=== PATIENT | female | born 1995 | race Caucasian/White ===

== ENCOUNTER 2017-02-20 15:00 | Inpatient (IN) ==
[2017-02-20] MEDS: LACTATED RINGERS 1,000 ML IV SCH (15:34)
[2017-02-20 16:23] LABS: Basophils # 0.1 10*3/uL (0.0-0.2); Basophils % 0.3 % (0.0-0.8); Eosinophils # 0.1 10*3/uL (0.0-0.87); Eosinophils % 0.5 % (0.00-10.9); Hematocrit 38.5 VOL% (35.7-47.0); Hemoglobin 12.8 GM/DL (12.0-16.0); Immature Granulocytes % 0.7 %; Lymphocytes # 3.3 10*3/uL (1.4-4.0); Lymphocytes % 21.5 % (21.3-54.2); Mean Corpuscular HGB Conc 33.2 GM/DL (32-36); Mean Corpuscular Hemoglobin 29 PG (27-34); Mean Corpuscular Volume 85.9 FL (87-102); Mean Platelet Volume 11.1 FL (9.6-12.0); Monocytes # 0.6 10*3/uL (0.11-0.8); Monocytes % 3.9 % (1.7-12.7); Neutrophils # 11.1 10*3/uL (1.4-7.4); Neutrophils % 73.1 % (38.7-73.9); Platelet Count 357 T/CUMM (130-400); Red Blood Count 4.48 MC/CUMM (3.8-5.5); Red Cell Distribution Width 14.1 % (9.3-17.3); White Blood Count 15.2 T/CUMM (4-12)
[2017-02-20 16:45] LABS: Alanine Aminotransferase 15 U/L (13-56); Albumin 2.4 G/DL (3.4-5.0); Alkaline Phosphatase 229 U/L (45-117); Aspartate Amino Transferase 15 U/L (0-37); Bilirubin,Total < 0.39 MG/DL (0.2-1.0); Blood Urea Nitrogen 14 MG/DL (7-18); Glucose 79 MG/DL (74-106); Potassium 4.4 MMOL/L (3.5-5.1); Sodium 136 MMOL/L (136-145); Total Protein 7.7 G/DL (6.4-8.3); Uric Acid 5.8 MG/DL (2.6-6.0)
[2017-02-20] MEDS: MEPERIDINE 50 MG/1 ML VIAL IV PRN (23:43)
[2017-02-20] MEDS: ONDANSETRON 4 MG/2 ML VIAL IV PRN (23:44)
[2017-02-21] MEDS: MEPERIDINE 50 MG/1 ML VIAL IV PRN (04:40)
[2017-02-21] MEDS ORDERED: ePHEDrine 50 MG/ML AMP IV PRN (08:49)
[2017-02-21] MEDS ORDERED: fentaNYL 2 MCG/ROPIV 0.2% EPID 150 ML EPIDURAL SCH (08:49)
[2017-02-21] MEDS ORDERED: hydrOXYzine HCL 25 MG/1 ML VIAL IM PRN (08:49)
[2017-02-21] MEDS ORDERED: PROMETHAZINE 25 MG/1 ML VIAL IM ONE (08:49)
[2017-02-21] MEDS ORDERED: LACTATED RINGERS 250 ML IV PRN (08:49)
[2017-02-21] MEDS ORDERED: diphenhydrAMINE 50 MG/1 ML VIAL IV PRN ×2 (08:49)
[2017-02-21] MEDS ORDERED: FAMOTIDINE 20 MG/2 ML VIAL IV ONE (08:51)
[2017-02-21] MEDS ORDERED: CITRIC ACID/SODIUM CITRATE 30 ML UDCUP PO ONE (08:51)
[2017-02-21] MEDS ORDERED: OXYTOCIN/LR 20 UNIT/1,000 ML BAG IV SCH (09:00)
[2017-02-21] MEDS ORDERED: BUTORPHANOL 1 MG/ML VIAL IV PRN (09:48)
[2017-02-21] MEDS: ONDANSETRON 4 MG/2 ML VIAL IV PRN (10:03)
[2017-02-21] MEDS: LACTATED RINGERS 1,000 ML IV SCH ×2 (10:26→18:26)
[2017-02-21] MEDS ORDERED: INFLUENZA VIRUS VACCINE 0.5 ML SYRINGE IM ONE (16:54)
[2017-02-21 17:04] LABS: Apearance,Urine CLEAR (Clear); Bilirubin,Urine Negative (Negative); Blood, Urine Negative (Negative); Glucose,Urine (UA) Negative (Negative); Ketones,Urine Negative (Negative); Mucus,Urine Occasional /LPF (Occasional); Nitrite,Urine Negative (Negative); Protein,Urine Negative; RBC,Urine <1 /HPF (0-4); Squamous Epithelial Cell,Urine Occasional /HPF (0-10); Urine Color Yellow (Yellow); Urine Specific Gravity 1.015 (1.001-1.035); Urine Urobilinogen < 2.0 EU/DL (0.2-1.0); WBC,Urine 1 /HPF (0-6)
[2017-02-22] MEDS: ONDANSETRON 4 MG/2 ML VIAL IV PRN (04:55)
[2017-02-22] MEDS ORDERED: FAMOTIDINE 20 MG/2 ML VIAL IV ONE (08:11)
[2017-02-22] MEDS ORDERED: CITRIC ACID/SODIUM CITRATE 30 ML UDCUP PO ONE (08:12)
[2017-02-22] MEDS ORDERED: ceFAZolin 2,000 MG in PREMIX 1 EACH IV ONE (09:15)
[2017-02-22] MEDS ORDERED: PROMETHAZINE 25 MG/1 ML VIAL IM PRN (11:22)
[2017-02-22] MEDS ORDERED: diphenhydrAMINE 50 MG/1 ML VIAL IV PRN (11:24)
[2017-02-22] MEDS ORDERED: hydrOXYzine HCL 25 MG/1 ML VIAL IM PRN (11:24)
[2017-02-22] MEDS ORDERED: ONDANSETRON 4 MG/2 ML VIAL IV PRN ×2 (11:24→13:54)
[2017-02-22] MEDS ORDERED: MORPHINE 10 MG/10 ML VIAL ONE (11:27)
[2017-02-22] MEDS ORDERED: KETAMINE 500 MG/10 ML VIAL ONE (11:27)
[2017-02-22] MEDS ORDERED: LACTATED RINGERS 1,000 ML IV SCH ×2 (11:30→14:00)
[2017-02-22] MEDS ORDERED: SODIUM CHLORIDE 0.9% 1,000 ML IV SCH (11:30)
[2017-02-22] MEDS ORDERED: ESMOLOL 100 MG/10 ML VIAL IV ONE (11:31)
[2017-02-22] MEDS ORDERED: ONDANSETRON 4 MG/2 ML VIAL ONE (11:31)
[2017-02-22] MEDS: HYDROmorphone 2 MG/1 ML VIAL IV PRN ×2 (11:53→18:47)
[2017-02-22] MEDS ORDERED: OXYTOCIN/LR 20 UNIT/1,000 ML BAG IV ONE (13:54)
[2017-02-22] MEDS ORDERED: ACETAMINOPHEN 325 MG TABLET PO PRN (13:54)
[2017-02-22] MEDS ORDERED: RHO(D) IMMUNE GLOBULIN 300 MCG SYRINGE IM ONE (15:00)
[2017-02-22 19:27] LABS: Basophils # 0.1 10*3/uL (0.0-0.2); Basophils % 0.4 % (0.0-0.8); Eosinophils # 0.1 10*3/uL (0.0-0.87); Eosinophils % 0.5 % (0.00-10.9); Hematocrit 31.4 VOL% (35.7-47.0); Hemoglobin 10.4 GM/DL (12.0-16.0); Immature Granulocytes % 0.5 %; Immature Granulocytes Absolute 0.07 #; Lymphocytes # 2.6 10*3/uL (1.4-4.0); Lymphocytes % 18.3 % (21.3-54.2); Mean Corpuscular HGB Conc 33.1 GM/DL (32-36); Mean Corpuscular Hemoglobin 28 PG (27-34); Mean Corpuscular Volume 85.8 FL (87-102); Mean Platelet Volume 10.9 FL (9.6-12.0); Monocytes # 0.6 10*3/uL (0.11-0.8); Monocytes % 4.2 % (1.7-12.7); Neutrophils # 10.8 10*3/uL (1.4-7.4); Neutrophils % 76.1 % (38.7-73.9); Platelet Count 261 T/CUMM (130-400); Red Blood Count 3.66 MC/CUMM (3.8-5.5); White Blood Count 14.2 T/CUMM (4-12)
[2017-02-23] MEDS: DOCUSATE SODIUM 100 MG CAPSULE PO SCH ×3 (00:06→20:47)
[2017-02-23] MEDS: LACTATED RINGERS 1,000 ML IV SCH (01:52)
[2017-02-23 06:43] LABS: Basophils % 0.2 % (0.0-0.8); Eosinophils # 0.1 10*3/uL (0.0-0.87); Eosinophils % 0.9 % (0.00-10.9); Hematocrit 32.4 VOL% (35.7-47.0); Hemoglobin 10.7 GM/DL (12.0-16.0); Immature Granulocytes % 0.6 %; Immature Granulocytes Absolute 0.08 #; Lymphocytes # 3.1 10*3/uL (1.4-4.0); Lymphocytes % 22.1 % (21.3-54.2); Mean Corpuscular Hemoglobin 29 PG (27-34); Mean Corpuscular Volume 86.2 FL (87-102); Monocytes # 0.7 10*3/uL (0.11-0.8); Monocytes % 4.8 % (1.7-12.7); Neutrophils # 10.1 10*3/uL (1.4-7.4); Neutrophils % 71.4 % (38.7-73.9); Platelet Count 267 T/CUMM (130-400); Red Blood Count 3.76 MC/CUMM (3.8-5.5); Red Cell Distribution Width 14.2 % (9.3-17.3); White Blood Count 14.1 T/CUMM (4-12)
[2017-02-23] MEDS: MULTIVITAMIN (PRENATAL) TABLET PO SCH (08:33)
[2017-02-23] MEDS: MAGNESIUM HYDROXIDE SUSP 30 ML UDCUP PO PRN ×2 (08:33→20:47)
[2017-02-23] MEDS: SIMETHICONE CHEW 80 MG TABLET PO PRN ×2 (08:33→20:54)
[2017-02-23] MEDS: IBUPROFEN 800 MG TABLET PO PRN ×2 (08:33→15:39)
[2017-02-23] MEDS ORDERED: oxyCODONE/ACETAMINOPHEN 5-325 MG TABLET PO PRN (19:51)
[2017-02-23] MEDS: oxyCODONE/ACETAMINOPHEN 5-325 MG TABLET PO PRN (20:47)
[2017-02-24] MEDS: IBUPROFEN 800 MG TABLET PO PRN ×2 (00:35→07:51)
[2017-02-24] MEDS: oxyCODONE/ACETAMINOPHEN 5-325 MG TABLET PO PRN (03:41)
[2017-02-24 07:41] VITALS: BP 109/60
[2017-02-24] MEDS ORDERED: oxyCODONE/ACETAMINOPHEN 5-325 MG TABLET PO PRN (07:46)
[2017-02-24] MEDS: DOCUSATE SODIUM 100 MG CAPSULE PO SCH (08:02)
[2017-02-24] MEDS: MULTIVITAMIN (PRENATAL) TABLET PO SCH ×2 (08:02→08:03)
[2017-02-24] MEDS ORDERED: DIPH/TET/ACEL PERT BOOSTER VACCINE 0.5 ML VIAL IM ONE (09:33)
== END 2017-02-24 12:20 | disposition home or self-care (01) | DRG 540 ==
LOC: N.LDOUT 15:00 → N.LD 15:06 → N.OB 02-22 15:26
PROVIDERS: ADMIT Obstetrics & Gynecology; ATTEND Obstetrics & Gynecology
PROC: LDCSECT (ICD-10-PCS; 2017-02-22 09:30)

== ENCOUNTER 2019-11-14 05:41 | Inpatient (IN) ==
[2019-11-14] MEDS ORDERED: ONDANSETRON 4 MG/2 ML VIAL IV PRN ×2 (05:54→09:22)
[2019-11-14] MEDS ORDERED: LACTATED RINGERS 1,000 ML IV ONE (05:54)
[2019-11-14] MEDS ORDERED: CITRIC ACID/SODIUM CITRATE 30 ML UDCUP PO ONE (05:58)
[2019-11-14] MEDS ORDERED: ONDANSETRON 4 MG/2 ML VIAL IV ONE (05:58)
[2019-11-14] MEDS ORDERED: hydrOXYzine HCL 25 MG/1 ML VIAL IM PRN (05:58)
[2019-11-14] MEDS ORDERED: PROMETHAZINE 25 MG/1 ML VIAL IM ONE (05:58)
[2019-11-14] MEDS ORDERED: diphenhydrAMINE 50 MG/1 ML VIAL IV PRN ×2 (05:58)
[2019-11-14] MEDS ORDERED: ePHEDrine 50 MG/ML VIAL IV PRN (05:58)
[2019-11-14] MEDS ORDERED: FAMOTIDINE 20 MG/2 ML VIAL IV ONE (05:58)
[2019-11-14] MEDS ORDERED: ceFAZolin 3,000 MG in SYRINGE 1 EACH IV ONE (05:59)
[2019-11-14] MEDS ORDERED: LACTATED RINGERS 1,000 ML IV SCH (06:00)
[2019-11-14 06:19] LABS: Basophils % 0.3 % (0.0-0.8); Eosinophils # 0.1 10*3/uL (0.0-0.87); Eosinophils % 0.5 % (0.00-10.9); Hematocrit 34.3 VOL% (35.7-47.0); Hemoglobin 10.9 GM/DL (12.0-16.0); Immature Granulocytes % 0.6 %; Immature Granulocytes Absolute 0.07 #; Lymphocytes # 3.1 10*3/uL (1.4-4.0); Mean Corpuscular HGB Conc 31.8 GM/DL (32-36); Mean Corpuscular Volume 85.8 FL (87-102); Mean Platelet Volume 11.4 FL (9.6-12.0); Monocytes % 4.6 % (1.7-12.7); Platelet Count 258 T/CUMM (130-400); Red Cell Distribution Width 13.5 % (9.3-17.3); White Blood Count 12.2 T/CUMM (4-12)
[2019-11-14 06:47] LABS: Alanine Aminotransferase 13 U/L (13-56); Albumin 2.4 G/DL (3.4-5.0); Alkaline Phosphatase 155 U/L (45-117); Aspartate Amino Transferase 10 U/L (0-37); Bilirubin,Total < 0.39 MG/DL (0.2-1.0); Blood Urea Nitrogen 11 MG/DL (7-18); Calcium 8.9 MG/DL (8.5-10.1); Estimated Glom Filtration Rate 157 ML/MIN; Glucose 81 MG/DL (74-106); Total Protein 7.2 G/DL (6.4-8.3)
[2019-11-14 07:08] LABS: Apearance,Urine CLEAR (Clear); Bacteria,Urine Occasional /HPF (Few); Bilirubin,Urine Negative (Negative); Blood, Urine Negative (Negative); Glucose,Urine (UA) Negative (Negative); Ketones,Urine Negative (Negative); Mucus,Urine Occasional /LPF (Occasional); Nitrite,Urine Negative (Negative); Protein,Urine Negative; RBC,Urine 1 /HPF (0-4); Squamous Epithelial Cell,Urine Occasional /HPF (0-10); Urine Color Yellow (Yellow); Urine Specific Gravity 1.017 (1.001-1.035); Urine Urobilinogen < 2.0 EU/DL (0.2-1.0); WBC,Urine <1 /HPF (0-6)
[2019-11-14] MEDS ORDERED: PHENYLEPHRINE 1 MG/10 ML SYRINGE IV ONE (07:18)
[2019-11-14] MEDS ORDERED: BUPIVACAINE 0.25% 50 ML VIAL ONE (07:18)
[2019-11-14] MEDS ORDERED: fentaNYL 100 MCG/2 ML VIAL ONE (07:19)
[2019-11-14] MEDS ORDERED: BUPIVACAINE SPINAL 0.75% 2 ML AMP SPINAL ONE (07:19)
[2019-11-14] MEDS ORDERED: MORPHINE 10 MG/10 ML VIAL ONE (07:19)
[2019-11-14] MEDS ORDERED: OXYTOCIN/LR 20 UNIT/1,000 ML BAG IV ONE ×2 (08:56→09:22)
[2019-11-14 09:19] LABS: Cord Arterial Blood HCO3 21.8 MMOL/L
[2019-11-14 09:20] LABS: Apearance,Urine CLEAR (Clear); Bilirubin,Urine Negative (Negative); Blood, Urine Negative (Negative); Glucose,Urine (UA) Negative (Negative); Ketones,Urine Negative (Negative); Nitrite,Urine Negative (Negative); Protein,Urine Negative; RBC,Urine <1 /HPF (0-4); Squamous Epithelial Cell,Urine Occasional /HPF (0-10); Urine Color Straw (Yellow); Urine Specific Gravity 1.012 (1.001-1.035); Urine Urobilinogen < 2.0 EU/DL (0.2-1.0); WBC,Urine <1 /HPF (0-6)
[2019-11-14 09:22] LABS: Cord Venous Blood HCO3 23.1 MMOL/L; Cord Venous Blood PCO2 56.9 MMHG; Cord Venous Blood PO2 27.8
[2019-11-14] MEDS ORDERED: RHO(D) IMMUNE GLOBULIN 300 MCG SYRINGE IM ONE (09:22)
[2019-11-14] MEDS ORDERED: MAGNESIUM HYDROXIDE SUSP 30 ML UDCUP PO PRN (09:22)
[2019-11-14] MEDS ORDERED: ACETAMINOPHEN 325 MG TABLET PO PRN (09:22)
[2019-11-14] MEDS ORDERED: propofoL 200 MG/20 ML VIAL IV ONE (09:50)
[2019-11-14] MEDS ORDERED: SUCCINYLCHOLINE 200 MG/10 ML VIAL ONE (09:50)
[2019-11-14] MEDS ORDERED: MIDAZOLAM 2 MG/2 ML VIAL ONE (09:50)
[2019-11-14] MEDS ORDERED: LIDOCAINE 2% 5 ML VIAL ONE (09:50)
[2019-11-14] MEDS ORDERED: DEXAMETHASONE 4 MG/1 ML VIAL ONE (09:51)
[2019-11-14] MEDS ORDERED: HYDROmorphone 2 MG/1 ML VIAL IV PRN (10:03)
[2019-11-14] MEDS: ceFAZolin 1,000 MG in SYRINGE 1 EACH IV SCH ×4 (16:40→23:29)
[2019-11-14] MEDS: LACTATED RINGERS 1,000 ML IV SCH (16:45)
[2019-11-14 17:10] LABS: Basophils % 0.1 % (0.0-0.8); Hematocrit 32.2 VOL% (35.7-47.0); Immature Granulocytes % 0.6 %; Immature Granulocytes Absolute 0.11 #; Lymphocytes # 1.5 10*3/uL (1.4-4.0); Lymphocytes % 8.2 % (21.3-54.2); Mean Corpuscular HGB Conc 31.1 GM/DL (32-36); Mean Corpuscular Volume 87.7 FL (87-102); Monocytes % 2.2 % (1.7-12.7); Neutrophils % 88.9 % (38.7-73.9); Platelet Count 223 T/CUMM (130-400); Red Blood Count 3.67 MC/CUMM (3.8-5.5); Red Cell Distribution Width 13.3 % (9.3-17.3); White Blood Count 17.9 T/CUMM (4-12)
[2019-11-14] MEDS: IBUPROFEN 800 MG TABLET PO PRN (23:31)
[2019-11-14] MEDS: DOCUSATE SODIUM 100 MG CAPSULE PO SCH (23:52)
[2019-11-15] MEDS: LACTATED RINGERS 1,000 ML IV SCH (02:17)
[2019-11-15 06:46] LABS: Basophils % 0.2 % (0.0-0.8); Eosinophils % 0.3 % (0.00-10.9); Hematocrit 27.8 VOL% (35.7-47.0); Hemoglobin 8.5 GM/DL (12.0-16.0); Immature Granulocytes % 0.7 %; Immature Granulocytes Absolute 0.08 #; Lymphocytes # 3.6 10*3/uL (1.4-4.0); Lymphocytes % 30.6 % (21.3-54.2); Mean Corpuscular HGB Conc 30.6 GM/DL (32-36); Mean Corpuscular Volume 88.5 FL (87-102); Mean Platelet Volume 11.4 FL (9.6-12.0); Monocytes % 5.6 % (1.7-12.7); Neutrophils % 62.6 % (38.7-73.9); Platelet Count 189 T/CUMM (130-400); Red Blood Count 3.14 MC/CUMM (3.8-5.5); Red Cell Distribution Width 13.5 % (9.3-17.3); White Blood Count 11.6 T/CUMM (4-12)
[2019-11-15] MEDS: DOCUSATE SODIUM 100 MG CAPSULE PO SCH ×3 (09:11→22:57)
[2019-11-15] MEDS: MULTIVITAMIN (PRENATAL) TABLET PO SCH (09:11)
[2019-11-15] MEDS: IBUPROFEN 800 MG TABLET PO PRN ×2 (11:42→19:48)
[2019-11-15] MEDS: SIMETHICONE CHEW 80 MG TABLET PO PRN (19:57)
[2019-11-16] MEDS: IBUPROFEN 800 MG TABLET PO PRN ×2 (03:30→12:18)
[2019-11-16 07:22] VITALS: BP 115/70
[2019-11-16] MEDS: SIMETHICONE CHEW 80 MG TABLET PO PRN (08:50)
[2019-11-16] MEDS: DOCUSATE SODIUM 100 MG CAPSULE PO SCH (08:50)
[2019-11-16] MEDS: MULTIVITAMIN (PRENATAL) TABLET PO SCH (08:50)
[2019-11-16] MEDS ORDERED: DIPH/TET/ACEL PERT BOOSTER VACCINE 0.5 ML VIAL IM ONE (12:12)
== END 2019-11-16 13:10 | disposition home or self-care (01) | DRG 540 ==
LOC: N.LDOUT 05:41 → N.LD 05:49 → N.OB 12:25
PROVIDERS: ADMIT Obstetrics & Gynecology; ATTEND Obstetrics & Gynecology
PROC: LDCSECT (ICD-10-PCS; 2019-11-14 07:30)